=== PATIENT | male | born 1990 | race American Indian/Alaskan Native ===

== ENCOUNTER 2021-04-11 11:48 | Emergency (ER) | payer SELFPAY ==
[2021-04-11] MEDS ORDERED: IBUPROFEN 800 MG TAB ONE (13:47)
[2021-04-11] MEDS ORDERED: ACETAMINOPHEN 500 MG TAB ONE (13:48)
[2021-04-11] MEDS ORDERED: CYCLOBENZAPRINE 10 MG TAB PO ONE (13:58)
--- NOTE | 2021-04-11 13:59 | Emergency Department Report ---
ED General Adult HPI - General Chief complaint: Back Pain/Injury Stated complaint: BACK PAINS Time Seen by Provider: 04/11/21 13:13 Source: patient Mode of arrival: Ambulatory Limitations: No Limitations - History of Present Illness Initial comments: 31-year-old -[place] male patient presents with complaints of sudden onset of low back pain starting last night. He denies any injuries and states he noted the pain when he awoke from his sleep. The pain is a 9/10 in severity and describes it as stabbing. Pain occurs with movement and with sitting. Patient states he has had intermittent low back pain, however this is the worst it has ever been. Pain does not radiate anywhere per patient. He also denies any hematochezia/hematuria, loss of bladder/bowel control, saddle paresthesia/weakness in his legs, history of cancer/unexplained weight loss, IV drug use, or steroid use. He states he has not tried any medications for symptoms - Related Data Previous Rx's Medication Instructions Recorded Last Taken Type Acetaminophen [Pain Relief Extra 1,000 mg PO QID PRN #30 tablet 04/11/21 Unknown Rx Strength] Cyclobenzaprine [Flexeril] 10 mg PO TID PRN #20 tablet 04/11/21 Unknown Rx Ibuprofen [Motrin 800 MG tab] 800 mg PO Q8HR PRN #20 tablet 04/11/21 Unknown Rx Allergies Allergy/AdvReac Type Severity Reaction Status Date / Time No Known Allergies Allergy Verified 04/11/21 12:48 ED Review of Systems ROS: Stated complaint: BACK PAINS Other details as noted in HPI Constitutional: denies: chills, diaphoresis, fever, malaise, weakness Respiratory: denies: cough, shortness of breath Cardiovascular: denies: chest pain Genitourinary: denies: urgency, dysuria, frequency, hematuria, discharge Neurological: denies: headache, numbness, paresthesias, abnormal gait ED Past Medical Hx - Past Medical History Previous Medical History?: No - Surgical History Past Surgical History?: No - Medications Home Medications: Home Medications Medication Instructions Recorded Confirmed Last Taken Type Acetaminophen [Pain Relief Extra 1,000 mg PO QID PRN #30 tablet 04/11/21 Unknown Rx Strength] Cyclobenzaprine [Flexeril] 10 mg PO TID PRN #20 tablet 04/11/21 Unknown Rx Ibuprofen [Motrin 800 MG tab] 800 mg PO Q8HR PRN #20 tablet 04/11/21 Unknown Rx ED Physical Exam - General Limitations: No Limitations General appearance: alert, in no apparent distress - Head Head exam: Present: atraumatic, normocephalic - Eye Eye exam: Present: normal appearance. Absent: scleral icterus - Neck Neck exam: Present: normal inspection - Respiratory Respiratory exam: Present: normal lung sounds bilaterally. Absent: respiratory distress - Cardiovascular Cardiovascular Exam: Present: regular rate, normal rhythm - GI/Abdominal GI/Abdominal exam: Present: soft. Absent: distended, tenderness, guarding, rebound, rigid - Back Exam Back exam: Present: full ROM, vertebral tenderness (Lower lumbar; no obvious deformities or step-offs noted). Absent: paraspinal tenderness - Expanded Back Exam Expanded Back exam: Absent: saddle anesthesia - Neurological Exam Neurological exam: Present: alert, oriented X3, normal gait - Expanded Neurological Exam Expanded Motor strength exam: RLE: 4, LLE: 4 Best Eye Response ([place]): (4) open spontaneously Best Motor Response ([place]): (6) obeys commands Best Verbal Response ([place]): (5) oriented [place] Total: 15 - Psychiatric Psychiatric exam: Present: normal affect, normal mood - Skin Skin exam: Present: warm, dry, intact, normal color. Absent: rash ED Course Vital Signs 04/11/21 12:48 Temperature 99.1 F Pulse Rate 99 H Respiratory 16 Rate Blood Pressure 117/61 O2 Sat by Pulse 88 Oximetry ED Medical Decision Making - Radiology Data Radiology results: report reviewed XR spine lumbosacral 2-3V HISTORY: acute pain COMPARISON: None. TECHNIQUE: 2 view(s) of the lumbar spine obtained. FINDINGS: Vertebrae: Normal alignment. Vertebral body heights are preserved. Spondylosis:Disc space heights are preserved. IMPRESSION: 1. No significant abnormality of the lumbar spine. - Medical Decision Making 31-year-old -[place] male patient presents with complaints of sudden onset of low back pain starting last night. He denies any injuries and states he noted the pain when he awoke from his sleep. The pain is a 9/10 in severity and describes it as stabbing. Pain occurs with movement and with sitting. Patient states he has had intermittent low back pain, however this is the worst it has ever been. Pain does not radiate anywhere per patient. He also denies any hematochezia/hematuria, loss of bladder/bowel control, saddle paresthesia/weakness in his legs, history of cancer/unexplained weight loss, IV drug use, or steroid use. He states he has not tried any medications for symptoms. X-ray is normal. Patient given ibuprofen, Tylenol, and Flexeril. He states his pain is completely resolved and has full range of motion of the spine. No red flag symptoms. He is well-appearing, his vitals are within normal limits, he is stable for discharge home. Recommend follow-up with primary care doctor in 3 to 5 days. Strict return precautions were discussed in detail with patient who verbalizes understanding Critical care attestation.: If time is entered above; I have spent that time in minutes in the direct care of this critically ill patient, excluding procedure time. ED Disposition Clinical Impression: Back pain, acute Disposition: 01 HOME / SELF CARE / HOMELESS Is pt being admited?: No Condition: Stable Instructions: Acute Back Pain, Adult Prescriptions: Cyclobenzaprine [Flexeril] 10 mg PO TID PRN #20 tablet PRN Reason: Muscle Spasm Ibuprofen [Motrin 800 MG tab] 800 mg PO Q8HR PRN #20 tablet PRN Reason: pain Acetaminophen [Pain Relief Extra Strength] 1,000 mg PO QID PRN #30 tablet PRN Reason: pain Referrals: PRIMARY CARE, [Primary Care Provider] - 3-5 Days [facility] [Provider Group] - 3-5 Days
--- NOTE | 2021-04-11 15:38 | XRay Report ---
XR spine lumbosacral 2-3V HISTORY: acute pain COMPARISON: None. TECHNIQUE: 2 view(s) of the lumbar spine obtained. FINDINGS: Vertebrae: Normal alignment. Vertebral body heights are preserved. Spondylosis:Disc space heights are preserved. IMPRESSION: 1. No significant abnormality of the lumbar spine. Signer Name: Yuri Basilio MD Signed: 04/11/2021 3:34 PM Workstation Name: [id number]
[2021-04-11 16:05] VITALS: BP 120/74
== END 2021-04-11 16:08 | disposition home or self-care (01) ==
LOC: ED 11:48
DX: M54.50 Low back pain, unspecified (principal)
CPT/HCPCS: 72100; 99283